=== PATIENT | male | born 1965 | race Caucasian/White ===

== ENCOUNTER 2017-01-30 01:49 | Emergency (ER) | payer MEDICAID ==
[~2017-01-30] VITALS: Ht 172.7 cm; Wt 78.0 kg
[2017-01-30 04:40] VITALS: BP 123/75
== END 2017-01-30 05:52 | disposition left against medical advice (07) ==
LOC: ER 01:50
DX: M54.9 Dorsalgia, unspecified (principal); M79.602 Pain in left arm; M25.562 Pain in left knee; Z53.21 Procedure and treatment not carried out due to patient leaving prior to being seen by health care provider

== ENCOUNTER 2017-09-23 18:07 | Emergency (ER) | payer MEDICAID ==
[~2017-09-23] VITALS: Ht 180.3 cm; Wt 80.0 kg
[~2017-09-23 18:07] MED LIST: DIPH25CA83 PO; TRAZ-129 PO
[2017-09-23] MEDS ORDERED: KETOROLAC 60MG/2ML VIAL IM ONE (19:30)
[2017-09-23 19:49] LABS: CLARITY URINE CLEAR (CLEAR); COLOR URINE YELLOW (YELLOW); GLUCOSE URINE NEGATIVE (NEGATIVE); KETONES URINE TRACE (NEGATIVE); LEUKOCYTE ESTERASE URINE NEGATIVE (NEGATIVE); NITRITE URINE NEGATIVE (NEGATIVE); OCCULT BLOOD URINE NEGATIVE (NEGATIVE); PH URINE 5.5 (4.5-8.0); PROTEIN URINE NEGATIVE (NEGATIVE); SPECIFIC GRAVITY URINE 1.033 (1.005-1.030)
[2017-09-23 19:53] VITALS: BP 118/88
[2017-09-23] MEDS ORDERED: BACITRACIN ZINC OINT UDPKT TOP ONE (20:30)
== END 2017-09-23 21:57 | disposition left against medical advice (07) ==
LOC: ER 18:57
DX: N40.0 Benign prostatic hyperplasia without lower urinary tract symptoms (principal); F31.9 Bipolar disorder, unspecified; F12.10 Cannabis abuse, uncomplicated; F15.10 Other stimulant abuse, uncomplicated
CPT/HCPCS: 81003; 96372; 99283; J1885